=== PATIENT | male | born 1955 | race Caucasian/White ===

== ENCOUNTER 2017-03-16 19:44 | Inpatient (IN) | payer OTHER ==
[~2017-03-16] VITALS: Ht 188 cm; Wt 86.9 kg
[~2017-03-16 19:44] MED LIST: BACL10TA PO; UNKNOWN MEDS
[2017-03-16] MEDS ORDERED: CEFTRIAXONE 1 GM/50 ML (PMX) 50 ML IVPB STA (20:00)
[2017-03-16] MEDS ORDERED: CEFEPIME 2GM/50 ML (PMX) 50 ML IVPB STA (20:00)
[2017-03-16] MEDS ORDERED: SODIUM CHLORIDE 0.9% 1L BAG IV* STA (20:12)
[2017-03-16] MEDS ORDERED: NIFE30TA60 PO (20:26)
[2017-03-16] MEDS ORDERED: ALBU2.5V3 NEB (20:27)
[2017-03-16] MEDS ORDERED: DILT120C79 PO (20:28)
[2017-03-16] MEDS ORDERED: OXYB5TAB22 PO (20:29)
[2017-03-16] MEDS ORDERED: VITA400C15 PO (20:29)
[2017-03-16] MEDS ORDERED: ZINC220C5 PO (20:29)
[2017-03-16] MEDS ORDERED: MULTI PO (20:30)
[2017-03-16] MEDS ORDERED: THIA100T56 PO (20:30)
[2017-03-16] MEDS ORDERED: FURO-109 PO (20:31)
[2017-03-16] MEDS ORDERED: ASCO500C7 PO (20:31)
[2017-03-16] MEDS ORDERED: CITA20TA11 PO (20:31)
[2017-03-16] MEDS ORDERED: FAMO20TA18 PO (20:32)
[2017-03-16] MEDS ORDERED: DOCU-144 PO (20:32)
[2017-03-16] MEDS ORDERED: FER325 PO (20:33)
[2017-03-16] MEDS ORDERED: BACL20TA PO (20:34)
[2017-03-16] MEDS ORDERED: GABA300C16 PO (20:35)
[2017-03-16] MEDS ORDERED: ACET-141 PO (20:35)
[2017-03-16] MEDS ORDERED: MAGN400O4 PO (20:37)
[2017-03-16] MEDS ORDERED: BEN25 PO (20:38)
[2017-03-16] MEDS ORDERED: LACT10SO5 PO (20:38)
[2017-03-16] MEDS ORDERED: BISA10SU75 PR (20:39)
[2017-03-16] MEDS ORDERED: ALBU18HF INHALATION (20:40)
[2017-03-16] MEDS ORDERED: HYDR-906 PO (20:41)
--- NOTE | 2017-03-16 20:42 | RADRPT ---
PROCEDURE: XR Chest. CLINICAL INDICATION: Possible sepsis. TECHNIQUE: PA and Lateral views of the chest were obtained. COMPARISON: None. FINDINGS: The soft tissues are normal. A posterior spinal fusion procedure was performed of the lower cervica l and upper thoracic spine. There are degenerative osteophytes in the mid and lower thoracic spine. The left ventricle is mildly enlarged. The cardiomediastinal silhouette and hilar structures are normal. The pulmonary vasculature is normal. There are vascular calcifications in the aortic arch. T he lungs are clear. The costophrenic angles are normal. IMPRESSION: 1. Left ventricular enlargement. 2. No evidence of active cardiopulmonary disease. RPTAT:AAJJ Physician Merle Date Time Electronically viewed and signed by Addi Hsu Physician on 03/16/2017 20:42 MANAV/
[2017-03-16] MEDS ORDERED: CLON-379 PO (20:43)
[2017-03-16] MEDS ORDERED: LEVE500T8 PO (20:44)
[2017-03-16] MEDS ORDERED: LORA1TAB PO (20:49)
[2017-03-16] MEDS ORDERED: HYDR4TAB18 PO (20:51)
[2017-03-16] MEDS ORDERED: LEVO500T72 PO (20:56)
[2017-03-16 22:05] LABS: ADD SCAN DIFF NO
[2017-03-16 22:07] LABS: BASOPHIL # 0.1 10^3/ul (0.0-0.1); BASOPHILS % 0.8 % (0.0-2.0); EOSINOPHILS # 0.3 10^3/ul (0.0-0.5); EOSINOPHILS % 4.2 % (0.0-7.0); HEMATOCRIT 37.9 % (42.0-52.0); HEMOGLOBIN 12.4 g/dl (14.0-18.0); LYMPHOCYTES # 2.7 10^3/ul (0.8-2.9); LYMPHOCYTES % 33.9 % (15.0-51.0); MEAN CORPUSCULAR HEMOGLOBIN 26.8 pg (29.0-33.0); MEAN CORPUSCULAR HGB CONC 32.7 g/dl (32.0-37.0); MEAN CORPUSCULAR VOLUME 81.9 fl (82.0-101.0); MEAN PLATELET VOLUME 8.6 fl (7.4-10.4); MONOCYTE # 0.7 10^3/ul (0.3-0.9); MONOCYTES % 8.8 % (0.0-11.0); NEUTROPHIL # 4.1 10^3/ul (1.6-7.5); PLATELET COUNT 305 10^3/UL (140-415); RED BLOOD COUNT 4.63 10^6/ul (4.70-6.10); RED CELL DISTRIBUTION WIDTH 18.5 % (11.5-14.5); WHITE BLOOD COUNT 7.9 10^3/ul (4.8-10.8)
[2017-03-16 22:16] LABS: ALBUMIN 3.9 g/dl (3.3-4.9)
[2017-03-16 22:17] LABS: CHLORIDE 103 mmol/L (97-110); POTASSIUM 3.8 mmol/L (3.5-5.1); SODIUM 139 mmol/L (135-144)
[2017-03-16 22:18] LABS: INR 1.03; PARTIAL THROMBOPLASTIN TIME 34.1 Sec (25.0-35.0); PROTIME 13.5 Sec (12.2-14.2); PT RATIO 1.1
[2017-03-16 22:19] LABS: AMYLASE 91 U/L (11-123); ANION GAP 16 (8-16); BILIRUBIN,INDIRECT 0.3 mg/dl (0-1.1); BILIRUBIN,TOTAL 0.3 mg/dl (0.2-1.3); CARBON DIOXIDE 24 mmol/L (21-31); CREATININE 0.86 mg/dl (0.61-1.24)
[2017-03-16 22:20] LABS: ALANINE AMINOTRANSFERASE 26 IU/L (13-69); ALKALINE PHOSPHATASE 92 IU/L (42-121); ASPARTATE AMINO TRANSFERASE 24 IU/L (15-46); BLOOD UREA NITROGEN 39 mg/dl (7-20); CALCIUM 9.2 mg/dl (8.4-10.2); GLUCOSE 119 mg/dl (70-220); TOTAL PROTEIN 8.2 g/dl (6.1-8.1)
[2017-03-16 22:32] LABS: TROPONIN-I < 0.012 ng/ml (0.00-0.12)
[2017-03-16 23:36] LABS: ADD UMIC YES; URINE BILIRUBIN (Dip) NEGATIVE (NEGATIVE); URINE BLOOD (Dip) TRACE (NEGATIVE); URINE COLOR LT. YELLOW (YELLOW); URINE GLUCOSE (Dip) NEGATIVE (NEGATIVE); URINE KETONES (Dip) NEGATIVE (NEGATIVE); URINE LEUKOCYTE ESTERASE (Dip) 3+ (NEGATIVE); URINE NITRITE (Dip) NEGATIVE (NEGATIVE); URINE TOTAL PROTEIN (Dip) NEGATIVE (NEGATIVE); URINE UROBILINOGEN (Dip) 0.2 E.U./dL (0.1-1.0)
[2017-03-16 23:46] LABS: URINE RBCS 0-2 /HPF (0)
[2017-03-17] VITALS (18 sets, daily range): BP systolic 66–159; BP diastolic 45–99; PULSE 74–100; RESP 14–20; TEMP 95; Ht 188 cm; Wt 86.9 kg
--- NOTE | 2017-03-17 00:02 | ERA ---
ER Documentation Chief Complaint Date/Time DATE: 03/17/17 TIME: 00:01 Chief Complaint RECURRING FEVER HPI This is a 61-year-old trached event patient subsequent nursing facility for recurrent fever. Patient has limited history ability given his current baseline mental and medical status. History is premature [facility] transfer sheet. ROS All systems reviewed and are negative except as per history of present illness. Medications Home Meds Reported Medications Levofloxacin* (Levaquin*) 500 Mg Tablet, 500 MG PO DAILY, TAB STARTED ON 03-12-17 FOR 10 DAYS 03/16/17 Hydromorphone Hcl* (Dilaudid*) 4 Mg Tablet, 4 MG PO Q4H Y for SEVERE PAIN LEVEL 7-10, TAB 03/16/17 Lorazepam* (Lorazepam*) 1 Mg Tablet, 1 MG PO Q4 Y for ANXIETY, #30 TAB 03/16/17 Levetiracetam* (Levetiracetam*) 500 Mg Tablet, 500 MG PO BID, TAB 03/16/17 Clonidine Hcl* (Clonidine Hcl*) 0.1 Mg Tab, 0.1 MG PO Q4H Y for ELEVATED BLOOD PRESSURE, TAB FOR SBP ABOVE 160 OR DBP ABOVE 90 ATIHYPERTENSIVE 03/16/17 Hydrocodone/Acetaminophen ([place] 5-325 Tablet) 1 Each Tablet, 1 EACH PO Q4H WHILE AWAKE Y for MODERATE PAIN LEVEL 4-6, TAB 03/16/17 Albuterol Sulfate* (Ventolin HFA*) 18 Gm Hfa.aer.ad, 1 PUFF INHALATION Q8 Y for WHEEZING AND SOB, #1 INHALER 03/16/17 Bisacodyl* (Bisacodyl*) 10 Mg Supp, 10 MG CA Q24H Y for CONSTIPATION, SUPP 03/16/17 Diphenhydramine Hcl* (Benadryl*) 25 Mg Cap, 50 MG PO Q8 Y for ITCHING, CAP 03/16/17 Lactulose* (Lactulose*) 10 Gm/15 Ml Solution, 10 GM PO Q8, ML 03/16/17 Magnesium Hydroxide* (Milk Of Magnesia*) 400 Mg/5 Ml Oral.susp, 30 ML PO DAILY, ML 03/16/17 Acetaminophen* (Acetaminophen*) 500 MG Extra Strength Tablet, 1000 MG PO Q6H Y for PAIN AND OR ELEVATED TEMP, TAB 03/16/17 Gabapentin* (Gabapentin*) 300 Mg Capsule, 300 MG PO TID, #90 CAP 03/16/17 Baclofen* (Baclofen*) 20 Mg Tablet, 20 MG PO TID, TAB 03/16/17 Ferrous Sulfate* (Ferrous Sulfate*) 325 Mg Tabec, 325 MG PO DAILY, TAB 03/16/17 Famotidine* (Famotidine*) 20 Mg Tablet, 20 MG PO BID Y for GASTROINTESTINAL UPSET, #60 TAB 03/16/17 Docusate Sodium* (Colace*) 100 Mg Capsule, 100 MG PO BID, #60 CAP 03/16/17 Citalopram Hydrobromide* (Celexa*) 20 Mg Tablet, 20 MG PO DAILY, #30 TAB 03/16/17 Ascorbic Acid* (Vitamin C*) 500 Mg Capsule.sa, 500 MG PO DAILY, CAP 03/16/17 Furosemide* (Lasix*) 40 Mg Tablet, 40 MG PO DAILY, TAB 03/16/17 Multivitamins* (Theragran*) 1 Tab Tab, 1 TAB PO DAILY, TAB 03/16/17 Thiamine* (Vitamin B-1*) 100 Mg Tablet, 100 MG PO DAILY, TAB 03/16/17 Vitamin E* (Vitamin E*) 400 Unit Capsule, 400 UNIT PO DAILY, CAP 03/16/17 Zinc Sulfate* (Zinc Sulfate*) 220 Mg Cap, 220 MG PO DAILY, CAP 03/16/17 Oxybutynin Chloride* (Ditropan* XL) 5 Mg Tabsr, 15 MG PO DAILY, TAB.SA 03/16/17 Diltiazem Hcl* (Diltiazem XT) 120 Mg Capsule.sa, 120 MG PO DAILY, #30 CAP HOLD FOR SBP BELOW 110 OR HR BELOW 50 03/16/17 Albuterol Sulfate* (Albuterol Sulfate* Neb) 0.083%-3 Ml Neb, 2.5 MG NEB Q4H WHILE AWAKE Y for WHEEZING AND SOB, #30 VIAL 03/16/17 Nifedipine* (Nifedipine ER*) 30 Mg Tablet.sa, 30 MG PO DAILY, TAB.SA HOLD FOR SBP BELOW 110 03/16/17 Discontinued Reported Medications [Unknown Meds] No Conflict Check 08/02/13 Baclofen* (Baclofen*) 10 Mg Tablet, 10 MG PO DAILY 08/02/13 Allergies Allergies: Coded Allergies: No Known Drug Allergy (Verified Allergy, Unknown, 03/16/17) PMhx/Soc History of Surgery: Yes (TRACH,SPINAL FUSION,LAMINECTOMY,) Anesthesia Reaction: No Hx Neurological Disorder: No Hx Cardiac Disorders: No Hx Psychiatric Problems: Yes (DEPRESSION) Hx Miscellaneous Medical Probl: Yes (MULTIPLE DECUBITUS ULCERS, STAGE FOUR COCCYX ULCER) Hx Alcohol Use: Yes Hx Substance Use: Yes (MEDICAL MARIJUANA) Hx Tobacco Use: Yes Smoking Status: Current every day smoker Physical Exam Vitals Vital Signs Date Time Temp Pulse Resp B/P Pulse Ox O2 Delivery O2 Flow Rate FiO2 03/16/17 20:00 98.7 68 12 97/69 100 Physical Exam Const: [] Head: Atraumatic Eyes: Normal Conjunctiva ENT: Trach site is clean dry and intact Neck: Full range of motion..~ No meningismus. Resp: Clear to auscultation bilaterally Cardio: Regular rate and rhythm, no murmurs Abd: Soft, non tender, non distended. Normal bowel sounds Skin: No petechiae or rashes Back: No midline or flank tenderness Ext: No cyanosis, or edema Neur: Awake and alert Psych: Normal Mood and Affect Result Diagram: 03/16/17 0935 03/16/17 0935 Results 24 hrs Laboratory Tests Test 03/16/17 09:35 03/16/17 21:35 03/16/17 23:07 White Blood Count 7.910^3/ul Red Blood Count 4.6310^6/ul Hemoglobin 12.4g/dl Hematocrit 37.9% Mean Corpuscular Volume 81.9fl Mean Corpuscular Hemoglobin 26.8pg Mean Corpuscular Hemoglobin Concent 32.7g/dl Red Cell Distribution Width 18.5% Platelet Count 30644^3/UL Mean Platelet Volume 8.6fl Neutrophils % 52.0% Lymphocytes % 33.9% Monocytes % 8.8% Eosinophils % 4.2% Basophils % 0.8% Nucleated Red Blood Cells % 0.0/100WBC Neutrophils # 4.110^3/ul Lymphocytes # 2.710^3/ul Monocytes # 0.710^3/ul Eosinophils # 0.310^3/ul Basophils # 0.110^3/ul Nucleated Red Blood Cells # 0.010^3/ul Prothrombin Time 13.5Sec Prothrombin Time Ratio 1.1 INR International Normalized Ratio 1.03 Activated Partial Thromboplast Time 34.1Sec Sodium Level 139mmol/L Potassium Level 3.8mmol/L Chloride Level 103mmol/L Carbon Dioxide Level 24mmol/L Anion Gap 16 Blood Urea Nitrogen 39mg/dl Creatinine 0.86mg/dl Glucose Level 119mg/dl Calcium Level 9.2mg/dl Total Bilirubin 0.3mg/dl Direct Bilirubin 0.00mg/dl Indirect Bilirubin 0.3mg/dl Aspartate Amino Transf (AST/SGOT) 24IU/L Alanine Aminotransferase (ALT/SGPT) 26IU/L Alkaline Phosphatase 92IU/L Troponin I < 0.012ng/ml Total Protein 8.2g/dl Albumin 3.9g/dl Globulin 4.30g/dl Albumin/Globulin Ratio 0.90 Amylase Level 91U/L Lipase 68U/L Lactic Acid Level 0.7mmol/L Urine Color LT. YELLOW Urine Clarity SLIGHTLY CLOUDY Urine pH 5.5 Urine Specific [place] 1.020 Urine Ketones NEGATIVE Urine Nitrite NEGATIVE Urine Bilirubin NEGATIVE Urine Urobilinogen 0.2 E.U./dL Urine Leukocyte Esterase 3+ Urine Microscopic RBC 0-2/HPF Urine Microscopic WBC >50/HPF Urine Yeast MODERATE Urine Hemoglobin TRACE Urine Glucose NEGATIVE% Urine Total Protein NEGATIVE Current Medications Medications (Trade) Dose Ordered Sig/Elieser Route PRN Reason Start Time Stop Time Status Last Admin Dose Admin Cefepime HCl 50 ml @ 100 mls/hr ONCE STAT IVPB 03/16/17 20:00 03/16/17 20:29 DC Ceftriaxone Sodium (Rocephin) 50 ml @ 100 mls/hr ONCE STAT IVPB 03/16/17 20:00 03/16/17 20:29 DC 03/16/17 23:35 Sodium Chloride (NS) 2,480 ml BOLUS OVER 2 HOURS STAT IV* 03/16/17 20:12 03/16/17 20:14 DC 03/16/17 23:35 Procedures/MDM Medical management: General recurrent fevers. No evidence of sepsis. Lactic acid negative chest x-ray negative. At this point patient will be admitted to hospitalist for further evaluation and management Chest X-ray 1V Interpreted by me: Soft Tissue: No acute abnormalities Bones: No acute abnormalities Mediastinum/Cardiac Silhouette/Lungs: No acute abnormalities EKG: Rate/Rhythm: [Normal Sinus Rhythm] QRS, ST, T-waves: [No changes consistent w/ acute ischemia] Impression: [No evidence of ischemia or arrhythmia] Departure Diagnosis: Primary Impression: Fever Qualified Code: R50.9 - Fever, unspecified fever cause Condition: Serious NINA CARD Mar 17, 2017 00:01
[2017-03-17] MEDS ORDERED: HYDROmorphONE 4 MG TAB PO PRN (03:30)
[2017-03-17] MEDS ORDERED: ALBUTEROL 0.083% (NEB) 2.5 MG/3 ML AMP NEB PRN (03:30)
[2017-03-17] MEDS ORDERED: ALBUTEROL HFA 8 GM INHALER INH PRN (03:30)
[2017-03-17] MEDS ORDERED: BISACODYL 10 MG SUPP PR PRN (03:30)
[2017-03-17] MEDS ORDERED: ACETAMINOPHEN 500 MG TAB PO PRN (03:30)
[2017-03-17] MEDS ORDERED: FAMOTIDINE 20 MG TAB PO PRN (03:30)
[2017-03-17] MEDS ORDERED: DIPHENHYDRAMINE 25 MG CAP PO PRN (03:30)
[2017-03-17] MEDS ORDERED: ONDANSETRON 4 MG INJ IV PRN ×2 (04:00→04:30)
[2017-03-17] MEDS ORDERED: VANCOMYCIN IV PER PHARMACY XX SCH (04:00)
[2017-03-17] MEDS ORDERED: DIPHENHYDRAMINE 50 MG CAP PO PRN (04:30)
[2017-03-17] MEDS ORDERED: ALBUTEROL 18 GM INHALER INH PRN (05:00)
[2017-03-17] MEDS: VANCOMYCIN 1.25 GM in SOD CHLORIDE 0.9% 250 ML IVPB SCH ×2 (07:06→17:40)
[2017-03-17] MEDS: FUROSEMIDE 40 MG TAB PO SCH (07:06)
--- NOTE | 2017-03-17 08:05 | HP ---
DATE OF ADMISSION: 03/16/2017 TIME SEEN: 5 a.m. CHIEF COMPLAINT: Fever and PICC line placement. HISTORY OF PRESENT ILLNESS: The patient is a 61-year-old male with a history of bilateral lower extremity deep venous thrombosis status post inferior vena cava filter, stage IV sacral/coccyx decubitus ulcer, left foot wound, colostomy , suprapubic cath and history of cervical spine fracture, status post a fall who is currently paraplegic. The patient was sent from SNF for recurrent fever. Note that the patient is not able to provide history, and as such information gathered from ER physician and chart review. Reportedly, the patient was treated with antibiotics a couple of months ago, but now he is having recurrent fever and as such, he is sent here to the ER for treatment as well as placement of a PICC line because the patient is a hard stick. Patient does not have any complain except saying that his colostomy bag is leaking When he presented to the ER, blood pressure was 97/69, heart rate 68, respiratory rate 12, temperature 98.7, oxygen saturation 100% on room air. Laboratory value shows WBC of 7.9, hemoglobin 12.4, platelet count 305, BUN is 39. Otherwise, the rest of his CMP is unremarkable. Urinalysis is consistent with a UTI. Chest x-ray shows left ventricular enlargement, otherwise no evidence of acute cardiopulmonary disease. REVIEW OF SYSTEM: Unable to fully assess. PAST MEDICAL HISTORY: As per HPI. PAST SURGICAL HISTORY: Tracheostomy, PEG placement, colostomy, suprapubic catheter placement, spinal fusion and laminectomy. SOCIAL HISTORY: Unknown. ALLERGIES: NO KNOWN DRUG ALLERGIES. HOME MEDICATION: 1. Benadryl. 2. Levaquin. 3. Albuterol. 4. Baclofen. 5. Ferrous sulfate. 6. Clonidine. 7. Diltiazem. 8. Nifedipine. 9. Tylenol. 10. Gabapentin. 11. Celexa. 12. [place]. 13. Dilaudid. 14. Keppra. 15. Ativan. 16. Lasix. 17. Lactulose. 18. Zinc sulfate. 19. Dulcolax. 20. Colace. 21. Famotidine. 22. Milk of Magnesia. 23. Oxybutynin. 24. Ascorbic acid. 25. Multivitamin. 26. Thiamine. 27. Vitamin E. PHYSICAL EXAMINATION: VITAL SIGNS: Stable. GENERAL: The patient lying in bed in no acute distress. HEENT: His pupils are reactive to light. No scleral icterus. Normocephalic. CARDIOVASCULAR: Regular rate and rhythm with no extra sounds. LUNGS: Slightly decreased breath sounds at the bases. ABDOMEN: Soft. A colostomy bag in place with some surrounding dried feces GENITOURINARY: There is a suprapubic catheter in place. EXTREMITIES: No edema. There is muscle wasting. LABORATORY DATA: Pertinent positives as mentioned in HPI. Urinalysis consistent with UTI. Chest x-ray with result as mentioned in the HPI. IMPRESSION: 1. Recurrent [facility], per [facility]. 2. Stage IV sacral/coccyx decubitus ulcer. 3. Left foot wound 4. Urinary tract infection. 5. History of bilateral DVT status post inferior vena cava filter placement. 6. Paraplegia, status post cervical spine injury. 7. Colostomy and suprapubic cath placement. PLAN: The patient will be placed on broad spectrum antibiotic. We will follow up on the urine culture and blood culture results. We will also send culture from his decubitus ulcer as well as from his left wound. Wound care consultation will be placed as well as an ID consult. We will place a PICC line. We will continue his home medication with adjustment as needed. Further workup and management per clinical course. Dictated By: NINA REAVES/DENIS Conf#: [id number] DID#: [id number] MTDD
[2017-03-17] MEDS: CEFEPIME 1GM/50 ML (PMX) 50 ML IVPB SCH ×2 (09:00→21:44)
[2017-03-17] MEDS: ASCORBIC ACID 500 MG TAB PO SCH (09:01)
[2017-03-17] MEDS: DOCUSATE SODIUM 100 MG CAP PO SCH ×2 (09:01→20:24)
[2017-03-17] MEDS: LEVETIRACETAM 500 MG TAB PO SCH ×2 (09:01→20:24)
[2017-03-17] MEDS: GABAPENTIN 300 MG CAP PO SCH ×3 (09:01→20:24)
[2017-03-17] MEDS: CITALOPRAM 20 MG TAB PO SCH (09:01)
[2017-03-17] MEDS: FERROUS SULFATE (EC) 325 MG TAB PO SCH (09:01)
[2017-03-17] MEDS: BACLOFEN 10 MG TAB PO SCH ×3 (09:01→20:24)
[2017-03-17] MEDS: DILTIAZEM (CD) 120 MG CAP PO SCH (09:02)
[2017-03-17] MEDS: HYDROmorphONE 2 MG TAB PO PRN (09:46)
--- NOTE | 2017-03-17 12:46 | PN ---
Date/Time of Note Date/Time of Note DATE: 03/17/17 TIME: 12:41 Assessment/Plan VTE Prophylaxis VTE Prophylaxis Intervention: SCD's Lines/Catheters IV Catheter Type (from Nrs): Saline Lock Urinary Cath still in place: Yes (suprapubic catheter) Reason Cath still needed: other (indicate) (monitor I&O) Assessment/Plan Chief Complaint/Hosp Course Assessment and plan 1. Reported recurrent fever suspect secondary to UTI. Patient with positive urinalysis. Follow-up on urine culture. Empiric antibiotics for now. 2. History of stage IV sacral/coccyx decubitus ulcer. Continue with wound care consult recommendations. Turn every 2 hours and as needed for wound pressure prevention 3. Left foot wound. Continue with Santyl and wound care. 4. History of bilateral DVT status post IVC filter. Monitor for now. 5. History of paraplegia status post cervical spine injury. Continue decubitus ulcer prevention Disposition and plan: Patient noted to be difficulty with peripheral IV placement. Plan for PICC line placement. Continue antibiotics. Follow-up on urine culture. Discussed plan of care with Dr. Millard Problems: Subjective 24 Hr Interval Summary Free Text/Dictation No specific complaints at this time. Comfortable at present. Friend at bedside Exam/Review of Systems Vital Signs Vitals Vital Signs Date Time Temp Pulse Resp B/P Pulse Ox O2 Delivery O2 Flow Rate FiO2 03/17/17 11:50 97.6 99 20 87/68 96 03/17/17 00:00 Room Air Intake and Output 03/16/17 03/16/17 03/17/17 15:00 23:00 07:00 Intake Total 840 ml Output Total 600 ml Balance 240 ml Exam Constitutional: alert, oriented Psych: nl mood/affect Head: normocephalic Neck: No jvd Respiratory: diminished breath sounds (At bases) Cardiovascular: other (Remains regular rate) Gastrointestinal: non-tender, other (PEG tube in place), soft Genitourinary - Male: other (Suprapubic catheter) Musculoskeletal: other (Minimal edema bilateral lower extremities. Noted with paraplegia below the) Neurological: nl mental status, nl speech Skin: other (Heel stage IV decubitus ulcer with flap noted with fungal appearing infection. Left foot open ulcer.) Results Result Diagram: 03/16/17 0935 03/16/17 0935 Results 24 hrs Laboratory Tests Test 03/16/17 21:35 03/16/17 23:07 03/16/17 23:45 03/17/17 02:50 Lactic Acid Level 0.7 0.7 1.6 Urine Color LT. YELLOW Urine Clarity SLIGHTLY CLOUDY Urine pH 5.5 Urine Specific [place] 1.020 Urine Ketones NEGATIVE Urine Nitrite NEGATIVE Urine Bilirubin NEGATIVE Urine Urobilinogen 0.2 E.U./dL Urine Leukocyte Esterase 3+ H Urine Microscopic RBC 0-2 Urine Microscopic WBC >50 Urine Yeast MODERATE Urine Hemoglobin TRACE Urine Glucose NEGATIVE Urine Total Protein NEGATIVE Medications Medications Current Medications Acetaminophen (Tylenol Tab) 500 mg Q6H PRN PO PAIN AND OR ELEVATED TEMP; Start 03/17/17 at 03:30 Ascorbic Acid (Vitamin C) 500 mg DAILY PO Last administered on 03/17/17 09:01 ; Admin Dose 500 MG; Start 03/17/17 at 09:00 Baclofen (Lioresal) 20 mg TID PO Last administered on 03/17/17 09:01; Admin Dose 20 MG; Start 03/17/17 at 09:00 Bisacodyl (Dulcolax Supp) 10 mg Q24H PRN [place] CONSTIPATION; Start 03/17/17 at 03: 30 Citalopram Hydrobromide (Celexa) 20 mg DAILY PO Last administered on 03/17/17 09:01; Admin Dose 20 MG; Start 03/17/17 at 09:00 Clonidine (Catapres) 0.1 mg Q4H PRN PO ELEVATED BLOOD PRESSURE; Start 03/17/17 at 03:30 Diltiazem HCl (Cardizem Cd) 120 mg DAILY PO Last administered on 03/17/17 09: 02; Admin Dose 120 MG; Start 03/17/17 at 09:00 Docusate Sodium (Colace) 100 mg BID PO Last administered on 03/17/17 09:01; Admin Dose 100 MG; Start 03/17/17 at 09:00 Famotidine (Pepcid) 20 mg BID PRN PO GASTROINTESTINAL UPSET; Start 03/17/17 at 03:30 Ferrous Sulfate (Ferrous Sulfate (Ec)) 325 mg DAILY PO Last administered on 09:01; Admin Dose 325 MG; Start 03/17/17 at 09:00 Furosemide (Lasix) 40 mg DAILY@06 PO Last administered on 03/17/17 07:06; Admin Dose 40 MG; Start 03/17/17 at 06:00 Gabapentin (Neurontin) 300 mg TID PO Last administered on 03/17/17 09:01; Admin Dose 300 MG; Start 03/17/17 at 09:00 Levetiracetam 500 mg 500 mg BID PO Last administered on 03/17/17 09:01; Admin Dose 500 MG; Start 03/17/17 at 09:00 Cefepime HCl (Maxipime 1gm/50 ml (Pmx)) 50 ml @ 100 mls/hr Q12 IVPB Last administered on 03/17/17 09:00; Admin Dose 100 MLS/HR; Start 03/17/17 at 09:00 Diphenhydramine HCl (Benadryl) 50 mg Q8 PRN PO ITCHING; Start 03/17/17 at 04:30 Hydromorphone HCl (Dilaudid) 4 mg Q4H PRN PO SEVERE PAIN LEVEL 7-10 Last administered on 03/17/17 09:46; Admin Dose 4 MG; Start 03/17/17 at 04:30 Ondansetron HCl 4 mg 4 mg Q6H PRN IV NAUSEA AND/OR VOMITING; Start 03/17/17 at 04:30 Vancomycin HCl/ Sodium Chloride (Vancocin/NS) 250 ml @ 83.333 mls/ hr Q12H IVPB Last administered on 03/17/17 07:06; Admin Dose 83.333 MLS/HR; Start at 05:00 Albuterol (Ventolin Hfa) 1 puff Q8 PRN INH WHEEZING AND SOB; Start 03/17/17 at 05:00 Lidocaine (Xylocaine 1% (Mpf)) 5 ml ONCE SC ; Start 03/17/17 at 09:00; Stop at 18:00 RENALDO BLANCO Mar 17, 2017 12:46
[2017-03-17] MEDS: LIDOCAINE 1% (MPF) 5 ML VIAL SC SCH (14:00)
--- NOTE | 2017-03-17 14:52 | RADRPT ---
PROCEDURE: US guidance for PICC line CLINICAL INDICATION: PICC line placement TECHNIQUE: Multiple real-time images were acquired of the patient's arm utilizing a high resolutio n transducer. This was performed by the PICC line nurse for venous access. COMPARISON: None FINDINGS: Ultrasound guidance for PICC line placement. There is a patent left upper extremity vein. IMPRESSION: Ultrasound guidance for PICC line placement. Patent left upper extremity vein. RPTAT: AA Physician Sabrina Date Time Electronically viewed and signed by Physician Sabrina on 03/17/2017 14:52 RA/
--- NOTE | 2017-03-17 14:53 | RADRPT ---
PROCEDURE: XR Chest. CLINICAL INDICATION: Check Line Placement#2 TECHNIQUE: Single frontal view of the chest was obtained. COMPARISON: Chest x-ray from 03/16/2017 FINDINGS: There has been interval placement of a left-sided PICC line with its tip in the distal SVC. There is stable mild cardiomegaly. The lungs are clear. There is no significant pleural effusion or pneumothorax. Partially visualized posterior cervical spine fusion hardware is again noted. There are significant degenerative changes of bilateral shoulder joints including joint space narrow ing and osteophytes. IMPRESSION: Interval placement of a left-sided PICC line with its tip in the distal SVC. RPTAT: EE Physician Sabrina Date Time Electronically viewed and signed by Physician Sabrina on 03/17/2017 14:53 /
--- NOTE | 2017-03-17 14:55 | RADRPT ---
PROCEDURE: XR Chest. CLINICAL INDICATION: Check Line Placement TECHNIQUE: Single frontal view of the chest was obtained. COMPARISON: Chest x-ray from 03/16/2017 FINDINGS: The tip of a PICC line coming in from the left side is noted to curl within the subclavian and left brachiocephalic veins. There is stable mild cardiomegaly. The lungs are clear. There is no significant pleural effusion or pneumothorax. Partially visualized posterior cervical and thoracic spine fusion hardware is again noted. IMPRESSION: Interval placement of a left-sided PICC line which is curling in the left brachiocephalic and subcla vian veins. Recommend: Repositioning the PICC line. RPTAT: EE Physician Sabrina Date Time Electronically viewed and signed by Physician Sabrina on 03/17/2017 14:55 /
[2017-03-17] MEDS: SOD CHLORIDE 0.9% 1,000 ML IV SCH (15:15)
[2017-03-17] MEDS: ALBUMIN HUMAN 5% 250 ML IV SCH ×2 (16:41→16:43)
[2017-03-17] MEDS ORDERED: SOD CHLORIDE 0.9% 100 ML ONE (18:46)
[2017-03-17] MEDS: NYSTATIN 30 GM POWDER BTL TOP SCH (21:45)
[2017-03-17] MEDS: HYDROCODONE/APAP (5/325) TAB PO PRN (23:41)
[2017-03-18] VITALS (12 sets, daily range): BP systolic 120–144; BP diastolic 69–88; PULSE 62–85; RESP 18–20
[2017-03-18] MEDS: VANCOMYCIN 1.25 GM in SOD CHLORIDE 0.9% 250 ML IVPB SCH ×2 (04:34→17:00)
[2017-03-18] MEDS: SOD CHLORIDE 0.9% 1,000 ML IV SCH ×2 (04:34→17:24)
[2017-03-18] MEDS: HYDROCODONE/APAP (5/325) TAB PO PRN ×2 (04:36→19:43)
[2017-03-18] MEDS: FUROSEMIDE 40 MG TAB PO SCH (05:13)
[2017-03-18 06:09] LABS: ADD SCAN DIFF NO
[2017-03-18 06:26] LABS: BASOPHILS % 0.5 % (0.0-2.0); EOSINOPHILS # 0.2 10^3/ul (0.0-0.5); EOSINOPHILS % 3.7 % (0.0-7.0); HEMATOCRIT 31.4 % (42.0-52.0); HEMOGLOBIN 10.5 g/dl (14.0-18.0); LYMPHOCYTES # 2.3 10^3/ul (0.8-2.9); LYMPHOCYTES % 38.1 % (15.0-51.0); MEAN CORPUSCULAR HEMOGLOBIN 27.6 pg (29.0-33.0); MEAN CORPUSCULAR HGB CONC 33.4 g/dl (32.0-37.0); MEAN CORPUSCULAR VOLUME 82.4 fl (82.0-101.0); MEAN PLATELET VOLUME 8.6 fl (7.4-10.4); MONOCYTE # 0.6 10^3/ul (0.3-0.9); MONOCYTES % 10.5 % (0.0-11.0); NEUTROPHIL # 2.8 10^3/ul (1.6-7.5); NEUTROPHILS % 46.9 % (39.0-77.0); PLATELET COUNT 229 10^3/UL (140-415); RED BLOOD COUNT 3.81 10^6/ul (4.70-6.10); RED CELL DISTRIBUTION WIDTH 18.4 % (11.5-14.5)
[2017-03-18 06:43] LABS: POTASSIUM 3.5 mmol/L (3.5-5.1)
[2017-03-18 06:46] LABS: CALCIUM 8.5 mg/dl (8.4-10.2); CREATININE 0.73 mg/dl (0.61-1.24)
[2017-03-18] MEDS: GABAPENTIN 300 MG CAP PO SCH ×3 (09:00→19:43)
[2017-03-18] MEDS: FERROUS SULFATE (EC) 325 MG TAB PO SCH (09:00)
[2017-03-18] MEDS: LIDOCAINE 1% (MPF) 5 ML VIAL SC SCH (09:00)
[2017-03-18] MEDS: BACLOFEN 10 MG TAB PO SCH ×4 (09:00→19:44)
[2017-03-18] MEDS: CITALOPRAM 20 MG TAB PO SCH (09:01)
[2017-03-18] MEDS: LEVETIRACETAM 500 MG TAB PO SCH ×2 (09:01→19:43)
[2017-03-18] MEDS: ASCORBIC ACID 500 MG TAB PO SCH (09:01)
[2017-03-18] MEDS: DOCUSATE SODIUM 100 MG CAP PO SCH ×2 (09:01→19:44)
[2017-03-18] MEDS: DILTIAZEM (CD) 120 MG CAP PO SCH (09:02)
[2017-03-18] MEDS: CEFEPIME 1GM/50 ML (PMX) 50 ML IVPB SCH ×2 (09:02→19:51)
[2017-03-18] MEDS: COLLAGENASE 30 GM TUBE TOP SCH (09:07)
[2017-03-18] MEDS: NYSTATIN 30 GM POWDER BTL TOP SCH ×2 (09:07→19:52)
[2017-03-18] MEDS ORDERED: NYST15PO4 TOP (11:29)
[2017-03-18] MEDS ORDERED: FLUC200T36 PO (11:29)
[2017-03-18] MEDS ORDERED: SAN30GM TOP (11:29)
--- NOTE | 2017-03-18 11:34 | PDOCDIS ---
Discharge Instructions DIAGNOSIS Discharge Diagnosis: 1. UTI 2. History of stage IV sacral/coccyx decubitus ulcer CONDITION Patient Condition: Stable HOME CARE INSTRUCTIONS: Diet Instructions: Low Fat /Cholesterol OTHER ORDERS: Other Orders: Further care and management per [facility] facility RENALDO BLANCO Mar 18, 2017 11:34
[2017-03-18] MEDS: FLUCONAZOLE 200 MG TAB PO SCH (13:31)
--- NOTE | 2017-03-18 16:12 | PN ---
Date/Time of Note Date/Time of Note DATE: 03/18/17 TIME: 16:07 Assessment/Plan VTE Prophylaxis VTE Prophylaxis Intervention: SCD's Lines/Catheters IV Catheter Type (from [facility]): [facility] Urinary Cath still in place: Yes (suprapubic) Assessment/Plan Chief Complaint/Hosp Course Assessment and plan 1. Reported recurrent fever suspect secondary to UTI. Patient with positive urinalysis. Urine culture showing [place]. Fluconazole started. 2. History of stage IV sacral/coccyx decubitus ulcer. Continue with wound care consult recommendations. Turn every 2 hours and as needed for wound pressure prevention 3. Left foot wound. Continue with Santyl and wound care. 4. History of bilateral DVT status post IVC filter. Monitor for now. 5. History of paraplegia status post cervical spine injury. Continue decubitus ulcer prevention Disposition and plan: Spoke with Dr. Garcia in regards to patient's past history. Dr. Garcia did report that patient does have history of drug abuse. Patient now with PICC line for IV antibiotic access. We'll await final wound cultures to decide if patient will need PICC line. We'll discontinue PICC line should culture come back negative and place and continue patient on fluconazole oral for his [place] UTI. We'll await results. Discussed in length with Dr. Millard and correctional counselor/case manager Marybel Lima Discussed plan of care with Dr. Millard Problems: Subjective 24 Hr Interval Summary Free Text/Dictation No plan distress seen at this time. Exam/Review of Systems Vital Signs Vitals Vital Signs Date Time Temp Pulse Resp B/P Pulse Ox O2 Delivery O2 Flow Rate FiO2 03/18/17 15:44 98.1 65 18 121/78 95 03/17/17 14:54 Room Air Intake and Output 03/17/17 03/17/17 03/18/17 15:00 23:00 07:00 Intake Total 4250 ml 2010 ml Output Total 1900 ml 2500 ml Balance 2350 ml -490 ml Exam Constitutional: alert, oriented, no apparent distress Psych: nl mood/affect Head: normocephalic Neck: No jvd Respiratory: diminished breath sounds (At bases) Cardiovascular: other (Remains regular rate) Gastrointestinal: non-tender, other (PEG tube in place), soft Genitourinary - Male: other (Suprapubic catheter) Musculoskeletal: other (Minimal edema bilateral lower extremities. Noted with paraplegia below the waist) Neurological: nl mental status, nl speech Skin: other (Heel stage IV decubitus ulcer with flap noted with fungal appearing infection. Left foot open ulcer.) Results Result Diagram: 03/18/1758 03/18/1758 Results 24 hrs Laboratory Tests Test 03/18/17 05:58 White Blood Count 6.0 # Red Blood Count 3.81 L Hemoglobin 10.5 L Hematocrit 31.4 L Mean Corpuscular Volume 82.4 Mean Corpuscular Hemoglobin 27.6 L Mean Corpuscular Hemoglobin Concent 33.4 Red Cell Distribution Width 18.4 H Platelet Count 229 # Mean Platelet Volume 8.6 Neutrophils % 46.9 Lymphocytes % 38.1 Monocytes % 10.5 Eosinophils % 3.7 Basophils % 0.5 Nucleated Red Blood Cells % 0.0 Neutrophils # 2.8 Lymphocytes # 2.3 Monocytes # 0.6 Eosinophils # 0.2 Basophils # 0.0 Nucleated Red Blood Cells # 0.0 Sodium Level 142 Potassium Level 3.5 Chloride Level 109 Carbon Dioxide Level 24 Anion Gap 13 Blood Urea Nitrogen 26 #H Creatinine 0.73 Glucose Level 96 Calcium Level 8.5 Medications Medications Current Medications Acetaminophen (Tylenol Tab) 500 mg Q6H PRN PO PAIN AND OR ELEVATED TEMP; Start 03/17/17 at 03:30 Ascorbic Acid (Vitamin C) 500 mg DAILY PO Last administered on 03/18/17 09:01 ; Admin Dose 500 MG; Start 03/17/17 at 09:00 Baclofen (Lioresal) 20 mg TID PO Last administered on 03/18/17 13:38; Admin Dose 20 MG; Start 03/17/17 at 09:00 Bisacodyl (Dulcolax Supp) 10 mg Q24H PRN [place] CONSTIPATION; Start 03/17/17 at 03: 30 Citalopram Hydrobromide (Celexa) 20 mg DAILY PO Last administered on 03/18/17 09:01; Admin Dose 20 MG; Start 03/17/17 at 09:00 Clonidine (Catapres) 0.1 mg Q4H PRN PO ELEVATED BLOOD PRESSURE; Start 03/17/17 at 03:30 Diltiazem HCl (Cardizem Cd) 120 mg DAILY PO Last administered on 03/18/17 09: 02; Admin Dose 120 MG; Start 03/17/17 at 09:00 Docusate Sodium (Colace) 100 mg BID PO Last administered on 03/18/17 09:01; Admin Dose 100 MG; Start 03/17/17 at 09:00 Famotidine (Pepcid) 20 mg BID PRN PO GASTROINTESTINAL UPSET; Start 03/17/17 at 03:30 Ferrous Sulfate (Ferrous Sulfate (Ec)) 325 mg DAILY PO Last administered on 09:00; Admin Dose 325 MG; Start 03/17/17 at 09:00 Furosemide (Lasix) 40 mg DAILY@06 PO Last administered on 03/18/17 05:13; Admin Dose 40 MG; Start 03/17/17 at 06:00 Gabapentin (Neurontin) 300 mg TID PO Last administered on 03/18/17 13:31; Admin Dose 300 MG; Start 03/17/17 at 09:00 Levetiracetam 500 mg 500 mg BID PO Last administered on 03/18/17 09:01; Admin Dose 500 MG; Start 03/17/17 at 09:00 Cefepime HCl (Maxipime 1gm/50 ml (Pmx)) 50 ml @ 100 mls/hr Q12 IVPB Last administered on 03/18/17 09:02; Admin Dose 100 MLS/HR; Start 03/17/17 at 09:00 Diphenhydramine HCl (Benadryl) 50 mg Q8 PRN PO ITCHING; Start 03/17/17 at 04:30 Hydromorphone HCl (Dilaudid) 4 mg Q4H PRN PO SEVERE PAIN LEVEL 7-10 Last administered on 03/17/17 09:46; Admin Dose 4 MG; Start 03/17/17 at 04:30 Ondansetron HCl 4 mg 4 mg Q6H PRN IV NAUSEA AND/OR VOMITING; Start 03/17/17 at 04:30 Vancomycin HCl/ Sodium Chloride (Vancocin/NS) 250 ml @ 83.333 mls/ hr Q12H IVPB Last administered on 03/18/17 04:34; Admin Dose 83.333 MLS/HR; Start at 05:00 Albuterol (Ventolin Hfa) 1 puff Q8 PRN INH WHEEZING AND SOB; Start 03/17/17 at 05:00 Lidocaine (Xylocaine 1% (Mpf)) 5 ml ONCE SC ; Start 03/17/17 at 09:00; Stop at 18:00 Collagenase (Santyl) 1 applic DAILY TOP Last administered on 03/18/17 09:07; Admin Dose 1 APPLIC; Start 03/18/17 at 09:00 Nystatin (Nystatin Powder) 1 applic BID TOP Last administered on 03/18/17 09: 07; Admin Dose 1 APPLIC; Start 03/17/17 at 21:00 IV Flush 10 ml 10 ml PRN PRN IV IV PROTOCOL; Start 03/17/17 at 15:30 Sodium Chloride (NS) 1,000 ml @ 80 mls/hr [id number] IV Last administered on 03/18 04:34; Admin Dose 80 MLS/HR; Start 03/17/17 at 15:30 Fluconazole (Diflucan) 200 mg DAILY PO Last administered on 03/18/17 13:31; Admin Dose 200 MG; Start 03/18/17 at 11:00 RENALDO BLANCO Mar 18, 2017 16:11
[2017-03-18] MEDS: VANCOMYCIN 1 GM in NS 250 ML IVPB SCH (19:43)
[2017-03-19] VITALS (9 sets, daily range): BP systolic 87–134; BP diastolic 53–90; PULSE 57–79; RESP 18–20
[2017-03-19] MEDS: HYDROCODONE/APAP (5/325) TAB PO PRN ×3 (00:07→21:29)
[2017-03-19] MEDS: SOD CHLORIDE 0.9% 1,000 ML IV SCH ×2 (05:00→16:24)
[2017-03-19] MEDS: FUROSEMIDE 40 MG TAB PO SCH (05:24)
[2017-03-19 08:08] LABS: ADD SCAN DIFF NO
[2017-03-19 08:15] LABS: BASOPHILS % 0.7 % (0.0-2.0); EOSINOPHILS % 7.2 % (0.0-7.0); HEMATOCRIT 34.9 % (42.0-52.0); HEMOGLOBIN 11.2 g/dl (14.0-18.0); LYMPHOCYTES # 2.7 10^3/ul (0.8-2.9); LYMPHOCYTES % 40.4 % (15.0-51.0); MEAN CORPUSCULAR HEMOGLOBIN 26.7 pg (29.0-33.0); MEAN CORPUSCULAR HGB CONC 32.1 g/dl (32.0-37.0); MEAN CORPUSCULAR VOLUME 83.3 fl (82.0-101.0); MEAN PLATELET VOLUME 8.8 fl (7.4-10.4); MONOCYTE # 0.6 10^3/ul (0.3-0.9); MONOCYTES % 9.6 % (0.0-11.0); NEUTROPHIL # 2.8 10^3/ul (1.6-7.5); PLATELET COUNT 243 10^3/UL (140-415); RED BLOOD COUNT 4.19 10^6/ul (4.70-6.10); RED CELL DISTRIBUTION WIDTH 18.2 % (11.5-14.5); WHITE BLOOD COUNT 6.7 10^3/ul (4.8-10.8)
[2017-03-19 08:16] LABS: BASOPHIL # 0.1 10^3/ul (0.0-0.1); EOSINOPHILS # 0.5 10^3/ul (0.0-0.5)
[2017-03-19 08:29] LABS: CREATININE 0.67 mg/dl (0.61-1.24); POTASSIUM 4.1 mmol/L (3.5-5.1)
[2017-03-19] MEDS: VANCOMYCIN 1 GM in NS 250 ML IVPB SCH ×2 (08:48→20:06)
[2017-03-19] MEDS: CEFEPIME 1GM/50 ML (PMX) 50 ML IVPB SCH ×2 (08:48→21:22)
[2017-03-19] MEDS: BACLOFEN 10 MG TAB PO SCH ×3 (08:48→21:21)
[2017-03-19] MEDS: FLUCONAZOLE 200 MG TAB PO SCH (08:48)
[2017-03-19] MEDS: FERROUS SULFATE (EC) 325 MG TAB PO SCH (08:49)
[2017-03-19] MEDS: DOCUSATE SODIUM 100 MG CAP PO SCH ×2 (08:49→21:20)
[2017-03-19] MEDS: DILTIAZEM (CD) 120 MG CAP PO SCH (08:49)
[2017-03-19] MEDS: CITALOPRAM 20 MG TAB PO SCH (08:49)
[2017-03-19] MEDS: GABAPENTIN 300 MG CAP PO SCH ×3 (08:49→21:21)
[2017-03-19] MEDS: LEVETIRACETAM 500 MG TAB PO SCH ×2 (08:49→21:21)
[2017-03-19] MEDS: ASCORBIC ACID 500 MG TAB PO SCH (08:49)
[2017-03-19] MEDS: COLLAGENASE 30 GM TUBE TOP SCH (08:50)
[2017-03-19] MEDS: NYSTATIN 30 GM POWDER BTL TOP SCH ×2 (08:50→21:21)
[2017-03-19] MEDS: HYDROmorphONE 2 MG TAB PO PRN ×2 (11:07→15:05)
--- NOTE | 2017-03-19 12:35 | PN ---
Date/Time of Note Date/Time of Note DATE: 03/19/17 TIME: 12:33 Assessment/Plan VTE Prophylaxis VTE Prophylaxis Intervention: SCD's Lines/Catheters IV Catheter Type (from [facility]): PICC Line Assessment/Plan Chief Complaint/Hosp Course Assessment and plan 1. Reported recurrent fever suspect secondary to UTI. Patient with positive urinalysis. Urine culture showing [place]. Continue fluconazole 2. History of stage IV sacral/coccyx decubitus ulcer. Continue with wound care consult recommendations. Turn every 2 hours and as needed for wound pressure prevention 3. Left foot wound. Continue with Santyl and wound care. Wound did show Staphylococcus and enterococcus species. Awaiting susceptibilities. 4. History of bilateral DVT status post IVC filter. Monitor for now. 5. History of paraplegia status post cervical spine injury. Continue decubitus ulcer prevention Disposition and plan: Spoke with Dr. Garcia in regards to patient's past history. Dr. Garcia did report that patient does have history of drug abuse. Patient now with PICC line for IV antibiotic access. Patient did have left foot wound with enterococcus and staph aureus species. Awaiting susceptibilities. Will adjust antibiotics accordingly. Continue inpatient monitoring for now Discussed plan of care with Dr. Millard Problems: Subjective 24 Hr Interval Summary Free Text/Dictation No apparent distress. new car make ready worker and complex case manager at bedside Exam/Review of Systems Vital Signs Vitals Vital Signs Date Time Temp Pulse Resp B/P Pulse Ox O2 Delivery O2 Flow Rate FiO2 03/19/17 12:10 99.0 62 03/19/17 12:10 18 116/62 98 03/19/17 04:37 Room Air Intake and Output 03/18/17 03/18/17 03/19/17 15:00 23:00 07:00 Intake Total 2140 ml Output Total 2000 ml Balance 140 ml Exam Constitutional: alert, oriented, no apparent distress, comfortable at present Psych: nl mood/affect Head: normocephalic Neck: No jvd Respiratory: No wheezing rhonchi Cardiovascular: other (Remains regular rate still) Gastrointestinal: non-tender, other (PEG tube in place), soft Genitourinary - Male: other (Suprapubic catheter) unchanged Musculoskeletal: other (Minimal edema bilateral lower extremities. Noted with paraplegia below the waist) Neurological: nl mental status, nl speech Skin: other (Heel stage IV decubitus ulcer with flap noted with fungal appearing infection still erythematous. Left foot open ulcer, no drainage.) Results Result Diagram: 03/19/17 0739 03/19/17 0739 Results 24 hrs Laboratory Tests Test 03/18/17 16:15 03/19/17 07:39 Vancomycin Level Trough 17.9 White Blood Count 6.7 Red Blood Count 4.19 L Hemoglobin 11.2 L Hematocrit 34.9 L Mean Corpuscular Volume 83.3 Mean Corpuscular Hemoglobin 26.7 L Mean Corpuscular Hemoglobin Concent 32.1 Red Cell Distribution Width 18.2 H Platelet Count 243 Mean Platelet Volume 8.8 Neutrophils % 42.0 Lymphocytes % 40.4 Monocytes % 9.6 Eosinophils % 7.2 H Basophils % 0.7 Nucleated Red Blood Cells % 0.0 Neutrophils # 2.8 Lymphocytes # 2.7 Monocytes # 0.6 Eosinophils # 0.5 Basophils # 0.1 Nucleated Red Blood Cells # 0.0 Sodium Level 140 Potassium Level 4.1 Chloride Level 109 Carbon Dioxide Level 26 Anion Gap 9 Blood Urea Nitrogen 21 H Creatinine 0.67 Glucose Level 87 Calcium Level 9.0 Medications Medications Current Medications Acetaminophen (Tylenol Tab) 500 mg Q6H PRN PO PAIN AND OR ELEVATED TEMP; Start 03/17/17 at 03:30 Ascorbic Acid (Vitamin C) 500 mg DAILY PO Last administered on 03/19/17 08:49 ; Admin Dose 500 MG; Start 03/17/17 at 09:00 Baclofen (Lioresal) 20 mg TID PO Last administered on 03/19/17 08:48; Admin Dose 20 MG; Start 03/17/17 at 09:00 Bisacodyl (Dulcolax Supp) 10 mg Q24H PRN [place] CONSTIPATION; Start 03/17/17 at 03: 30 Citalopram Hydrobromide (Celexa) 20 mg DAILY PO Last administered on 03/19/17 08:49; Admin Dose 20 MG; Start 03/17/17 at 09:00 Clonidine (Catapres) 0.1 mg Q4H PRN PO ELEVATED BLOOD PRESSURE; Start 03/17/17 at 03:30 Diltiazem HCl (Cardizem Cd) 120 mg DAILY PO Last administered on 03/19/17 08: 49; Admin Dose 120 MG; Start 03/17/17 at 09:00 Docusate Sodium (Colace) 100 mg BID PO Last administered on 03/19/17 08:49; Admin Dose 100 MG; Start 03/17/17 at 09:00 Famotidine (Pepcid) 20 mg BID PRN PO GASTROINTESTINAL UPSET; Start 03/17/17 at 03:30 Ferrous Sulfate (Ferrous Sulfate (Ec)) 325 mg DAILY PO Last administered on 08:49; Admin Dose 325 MG; Start 03/17/17 at 09:00 Furosemide (Lasix) 40 mg DAILY@06 PO Last administered on 03/19/17 05:24; Admin Dose 40 MG; Start 03/17/17 at 06:00 Gabapentin (Neurontin) 300 mg TID PO Last administered on 03/19/17 08:49; Admin Dose 300 MG; Start 03/17/17 at 09:00 Levetiracetam 500 mg 500 mg BID PO Last administered on 03/19/17 08:49; Admin Dose 500 MG; Start 03/17/17 at 09:00 Cefepime HCl (Maxipime 1gm/50 ml (Pmx)) 50 ml @ 100 mls/hr Q12 IVPB Last administered on 03/19/17 08:48; Admin Dose 100 MLS/HR; Start 03/17/17 at 09:00 Diphenhydramine HCl (Benadryl) 50 mg Q8 PRN PO ITCHING; Start 03/17/17 at 04:30 Hydromorphone HCl (Dilaudid) 4 mg Q4H PRN PO SEVERE PAIN LEVEL 7-10 Last administered on 03/19/17 11:07; Admin Dose 4 MG; Start 03/17/17 at 04:30 Ondansetron HCl (Zofran Inj) 4 mg Q6H PRN IV NAUSEA AND/OR VOMITING; Start at 04:30 Albuterol (Ventolin Hfa) 1 puff Q8 PRN INH WHEEZING AND SOB; Start 03/17/17 at 05:00 Collagenase (Santyl) 1 applic DAILY TOP Last administered on 03/19/17 08:50; Admin Dose 1 APPLIC; Start 03/18/17 at 09:00 Nystatin (Nystatin Powder) 1 applic BID TOP Last administered on 03/19/17 08: 50; Admin Dose 1 APPLIC; Start 03/17/17 at 21:00 IV Flush 10 ml 10 ml PRN PRN IV IV PROTOCOL; Start 03/17/17 at 15:30 Sodium Chloride (NS) 1,000 ml @ 80 mls/hr [id number] IV Last administered on 03/18 17:24; Admin Dose 80 MLS/HR; Start 03/17/17 at 15:30 Fluconazole 200 mg 200 mg DAILY PO Last administered on 03/19/17 08:48; Admin Dose 200 MG; Start 03/18/17 at 11:00 Vancomycin HCl (Vancocin) 250 ml @ 125 mls/hr Q12H IVPB Last administered on 08:48; Admin Dose 125 MLS/HR; Start 03/18/17 at 20:00 RENALDO BLANCO Mar 19, 2017 12:35
[2017-03-20 03:50] VITALS: BP 114/67; RESP 19
[2017-03-20] MEDS: HYDROCODONE/APAP (5/325) TAB PO PRN ×2 (05:59→16:44)
[2017-03-20] MEDS: SOD CHLORIDE 0.9% 1,000 ML IV SCH ×2 (06:00→15:33)
[2017-03-20] MEDS: FUROSEMIDE 40 MG TAB PO SCH (06:00)
[2017-03-20 06:39] LABS: ADD SCAN DIFF NO
[2017-03-20 06:45] LABS: BASOPHILS % 0.4 % (0.0-2.0); EOSINOPHILS # 0.8 10^3/ul (0.0-0.5); EOSINOPHILS % 9.4 % (0.0-7.0); HEMATOCRIT 33.7 % (42.0-52.0); HEMOGLOBIN 10.7 g/dl (14.0-18.0); LYMPHOCYTES # 2.9 10^3/ul (0.8-2.9); LYMPHOCYTES % 32.5 % (15.0-51.0); MEAN CORPUSCULAR HEMOGLOBIN 26.6 pg (29.0-33.0); MEAN CORPUSCULAR HGB CONC 31.8 g/dl (32.0-37.0); MEAN CORPUSCULAR VOLUME 83.6 fl (82.0-101.0); MEAN PLATELET VOLUME 8.7 fl (7.4-10.4); MONOCYTE # 0.8 10^3/ul (0.3-0.9); MONOCYTES % 8.7 % (0.0-11.0); NEUTROPHIL # 4.3 10^3/ul (1.6-7.5); NEUTROPHILS % 48.8 % (39.0-77.0); PLATELET COUNT 228 10^3/UL (140-415); RED BLOOD COUNT 4.03 10^6/ul (4.70-6.10); RED CELL DISTRIBUTION WIDTH 18.2 % (11.5-14.5); WHITE BLOOD COUNT 8.9 10^3/ul (4.8-10.8)
[2017-03-20 07:14] VITALS: BP 123/73; RESP 18
[2017-03-20 07:21] LABS: CALCIUM 8.8 mg/dl (8.4-10.2); CREATININE 0.73 mg/dl (0.61-1.24)
[2017-03-20] MEDS: VANCOMYCIN 1 GM in NS 250 ML IVPB SCH (07:49)
[2017-03-20] MEDS: CEFEPIME 1GM/50 ML (PMX) 50 ML IVPB SCH ×2 (07:49→10:30)
[2017-03-20] MEDS: FLUCONAZOLE 200 MG TAB PO SCH (09:00)
[2017-03-20] MEDS: BACLOFEN 10 MG TAB PO SCH ×2 (09:00→14:35)
[2017-03-20] MEDS: CITALOPRAM 20 MG TAB PO SCH (09:00)
[2017-03-20] MEDS: DOCUSATE SODIUM 100 MG CAP PO SCH (09:00)
[2017-03-20] MEDS: GABAPENTIN 300 MG CAP PO SCH ×2 (09:00→14:35)
[2017-03-20] MEDS: FERROUS SULFATE (EC) 325 MG TAB PO SCH (09:00)
[2017-03-20] MEDS: DILTIAZEM (CD) 120 MG CAP PO SCH (09:01)
[2017-03-20] MEDS: LEVETIRACETAM 500 MG TAB PO SCH (09:01)
[2017-03-20] MEDS: COLLAGENASE 30 GM TUBE TOP SCH (09:01)
[2017-03-20] MEDS: NYSTATIN 30 GM POWDER BTL TOP SCH (09:01)
[2017-03-20] MEDS: ASCORBIC ACID 500 MG TAB PO SCH (09:01)
[2017-03-20 11:50] VITALS: BP 118/75; RESP 17
[2017-03-20] MEDS ORDERED: VANCOMYCIN 750 MG in SOD CHLORIDE 0.9% 150 ML IVPB SCH (12:00)
[2017-03-20] MEDS ORDERED: VANC750F2 IV (12:33)
[2017-03-20 15:17] VITALS: BP 114/60; RESP 18
[2017-03-20 19:52] VITALS: BP 113/70; RESP 19
== END 2017-03-20 20:14 | DRG 727 ==
LOC: E/R 19:44 → TEL 23:34
PROVIDERS: ADMIT Internal Medicine; ATTEND Internal Medicine
PROC: 02HV33Z Insertion of Infusion Device into Superior Vena Cava, Percutaneous Approach (ICD-10-PCS; principal; 2017-03-17)
PROC: B548ZZA Ultrasonography of Superior Vena Cava, Guidance (ICD-10-PCS; 2017-03-17)
DX: B37.49 Other urogenital candidiasis (principal); L89.154 Pressure ulcer of sacral region, stage 4; G82.20 Paraplegia, unspecified; S14.109S Unspecified injury at unspecified level of cervical spinal cord, sequela; S91.302A Unspecified open wound, left foot, initial encounter; Z86.718 Personal history of other venous thrombosis and embolism; Z93.3 Colostomy status; Z95.828 Presence of other vascular implants and grafts; X58.XXXS Exposure to other specified factors, sequela; X58.XXXA Exposure to other specified factors, initial encounter; B95.8 Unspecified staphylococcus as the cause of diseases classified elsewhere
CPT/HCPCS: 36569; 71010; 76937; 80048; 80053; 80202; 81001; 81003; 82150; 83605; 83690; 84484; 85025; 85610; 85730; 86850; 86900; 86901; 87040; 87070; 87081; 87086; 93005; 96365; 96368; J0692; J0696; J1170; J3370; J7030; J7050; P9045

== ENCOUNTER → 2017-04-01 | Outpatient (CLI) | payer OTHER ==
[~2017-04-01] MED LIST changes: +ACET-141 PO; +ALBU18HF INHALATION; +ALBU2.5V3 NEB; +ASCO500C7 PO; -BACL10TA PO; +BACL20TA PO; +BEN25 PO; +BISA10SU75 PR; +CITA20TA11 PO; +CLON-379 PO; +DILT120C79 PO; +DOCU-144 PO; +FAMO20TA18 PO; +FER325 PO; +FLUC200T36 PO; +FURO-109 PO; +GABA300C16 PO; +HYDR-906 PO; +HYDR4TAB18 PO; +LACT10SO5 PO; +LEVE500T8 PO; +LIDOCAINE 1% (MPF) 5 ML VIAL ONE; +LORA1TAB PO; +MAGN400O4 PO; +MULTI PO; +NIFE30TA60 PO; +NYST15PO4 TOP; +OXYB5TAB22 PO; +SAN30GM TOP; +SOD CHLORIDE 0.9% 100 ML ONE; +THIA100T56 PO; -UNKNOWN MEDS; +VANC750F2 IV; +VITA400C15 PO; +ZINC220C5 PO
--- NOTE | 2017-04-01 14:39 | RADRPT ---
PROCEDURE: US guidance for PICC line CLINICAL INDICATION: PICC line placement TECHNIQUE: Multiple real-time images were acquired of the patient's arm utilizing a high resolutio n transducer. This was performed by the PICC line nurse for venous access. COMPARISON: None FINDINGS: Ultrasound guidance for PICC line placement. IMPRESSION: Ultrasound guidance for PICC line placement. RPTAT: AA .Tommie Metz MD, MD Date Time Electronically viewed and signed by .Tommie Metz MD, on 04/01/2017 14:39 .S/
--- NOTE | 2017-04-01 15:18 | RADRPT ---
PROCEDURE: XR Chest. CLINICAL INDICATION: Central line placement TECHNIQUE: PA and lateral chest x-ray. COMPARISON: 03/17/2017 chest radiograph. FINDINGS: Interval removal of left-sided PICC line and placement of right-sided PICC line which is in satisfac tory position. The lungs are clear. No pleural effusion or pneumothorax. Heart size upper limits of normal. Partially visualized cervical fusion hardware is unchanged. Vascular calcifications of the aorta are present compatible with atherosclerosis. IMPRESSION: Right-sided PICC line in satisfactory position.. RPTAT: AADD .Karlos Sanchez MD, MD Date Time Electronically viewed and signed by .Karlos Sanchez MD, MD on 04/01/2017 15:18 .B/
== END | disposition home or self-care (01) ==
LOC: RAD 13:16
DX: A41.9 Sepsis, unspecified organism (principal)
CPT/HCPCS: 36569; 71010; 76937